=== PATIENT | female | born 1995 | race Two or more races ===

== ENCOUNTER 2019-08-13 11:12 | Outpatient (CLI) ==
[2019-08-13] MEDS ORDERED: None per pt (11:40)
[2019-08-13 12:04] LABS: BASOPHILS # (AUTO) 0.02 x10^3/uL (0-0.1); BASOPHILS % (AUTO) 0 % (0-1); EOSINOPHILS # (AUTO) 0.11 x10^3/uL (0-0.4); EOSINOPHILS % (AUTO) 2 % (1-7); LYMPHOCYTES # (AUTO) 2.19 x10^3/uL (1-3.4); LYMPHOCYTES % (AUTO) 46 % (22-44); MD NO; MEAN CORPUSCULAR HGB CONC 33.1 g/dL (32.4-35.8); MEAN CORPUSCULAR VOLUME 93.8 fL (80-100); MEAN PLATELET VOLUME 9.3 fL (7.4-10.4); MONOCYTES # (AUTO) 0.32 x10^3/uL (0.2-0.8); MONOCYTES % (AUTO) 7 % (2-9); NEUTROPHILS # (AUTO) 2.11 x10^3/uL (1.8-6.8); NEUTROPHILS % (AUTO) 44 % (42-75); PLATELET COUNT 202 x10^3/uL (130-400); RED BLOOD COUNT 4.34 x10^6/uL (3.82-5.3); RED CELL DISTRIBUTION WIDTH 13.2 % (9.6-15.2)
== END 2019-08-13 23:59 | disposition home or self-care (01) ==
LOC: STAR 11:12
PROVIDERS: ATTEND Obstetrics & Gynecology
DX: Z01.818 Encounter for other preprocedural examination (principal); N94.6 Dysmenorrhea, unspecified
CPT/HCPCS: 36415; 84703; 85025

== ENCOUNTER 2019-08-20 10:24 | Day surgery (SDC) | payer BC ==
[~2019-08-20] VITALS: Ht 157.5 cm; Wt 41.5 kg
[~2019-08-20 10:24] MED LIST: None per pt
[2019-08-20] MEDS ORDERED: LACTATED RINGERS 1,000 ML IV SCH (10:51)
[2019-08-20 10:54] VITALS: BP 115/83
[2019-08-20 10:56] LABS: HCG UR SG 1.026 (1.003-1.030)
[2019-08-20] MEDS ORDERED: LIDOCAINE-MPF 1%, 2ML INFIL ONE (11:00)
[2019-08-20] MEDS ORDERED: EPINEPHRINE 1 MG/ML, 1ML ONE (11:51)
[2019-08-20] MEDS ORDERED: BUPIVACAINE/PF 0.25% ONE (11:51)
[2019-08-20] MEDS ORDERED: MIDAZOLAM 1 MG/ML, 2ML ONE ×2 (12:23→13:47)
[2019-08-20] MEDS ORDERED: PROPOFOL 10 MG/ML, 20ML ONE (12:24)
[2019-08-20] MEDS ORDERED: FENTANYL PF 250 MCG/5ML ONE (12:24)
[2019-08-20] MEDS ORDERED: SUCCINYLCHOLINE 20 MG/ML, 10ML ONE (12:24)
[2019-08-20] MEDS ORDERED: ROCURONIUM 10MG/ML,5ML ONE (12:24)
[2019-08-20] MEDS ORDERED: DEXAMETHASONE 4 MG/ML, 1ML ONE ×2 (12:25)
[2019-08-20] MEDS ORDERED: ONDANSETRON 2MG/ML, 2ML ONE ×2 (13:09→13:10)
[2019-08-20] MEDS ORDERED: SUGAMMADEX 200 MG/2 ML IVPush ONE (13:09)
[2019-08-20] MEDS ORDERED: ACETAMINOPHEN 325 MG TABLET PO PRN (13:30)
[2019-08-20] MEDS ORDERED: hydrALAzine 20 MG/ML, 1ML IV PRN (13:30)
[2019-08-20] MEDS ORDERED: PROMETHAZINE 25 MG/ML, 1ML IV PRN (13:30)
[2019-08-20] MEDS ORDERED: LABETALOL 5MG/ML, 20ML IV PRN (13:30)
[2019-08-20] MEDS ORDERED: ONDANSETRON ODT 8 MG PO PRN (13:30)
[2019-08-20] MEDS ORDERED: OXYcodone 5 MG/5 ML ORAL.SOL UDC PO PRN (13:30)
[2019-08-20] MEDS ORDERED: MEPERIDINE/PF 25MG/ML,1ML IVPush PRN (13:30)
[2019-08-20] MEDS ORDERED: PROMETHAZINE 12.5 MG SUPP PR PRN (13:30)
[2019-08-20] MEDS ORDERED: MIDAZOLAM 1 MG/ML, 2ML IV PRN (13:30)
[2019-08-20] MEDS ORDERED: ONDANSETRON 2MG/ML, 2ML IV PRN (13:30)
[2019-08-20] MEDS ORDERED: DIAZEPAM 5 MG/ML, 2ML IVPush PRN (13:30)
[2019-08-20] MEDS ORDERED: HYDROmorphone 2 MG/ML, 1ML IVPush PRN (13:30)
[2019-08-20] MEDS ORDERED: ALBUTEROL SULFATE 2.5 MG/3 ML NPPB PRN (13:30)
[2019-08-20] MEDS ORDERED: HALOPERIDOL 5 MG/ML IV PRN (13:30)
[2019-08-20] MEDS ORDERED: EPHEDRINE 50 MG/ML, 1ML IVPush PRN (13:30)
[2019-08-20] MEDS ORDERED: ACETAMINOPHEN 650 MG/20.3 ML UDC ONE ×2 (13:46→13:58)
[2019-08-20] MEDS ORDERED: FENTANYL PF 100 MCG/2ML ONE (13:46)
[2019-08-20] MEDS ORDERED: OXYcodone 5 MG/5 ML ORAL.SOL UDC ONE (13:47)
[2019-08-20] MEDS: FENTANYL PF 100 MCG/2ML IV PRN ×2 (13:51→14:01)
== END 2019-08-20 15:30 | disposition home or self-care (01) ==
LOC: OUT 10:24
PROVIDERS: ATTEND Obstetrics & Gynecology
DX: N94.6 Dysmenorrhea, unspecified (principal); N92.0 Excessive and frequent menstruation with regular cycle; Z79.1 Long term (current) use of non-steroidal anti-inflammatories (NSAID)
CPT/HCPCS: 36415; 49320; 81025; 86850; 86900; J0171; J0330; J1100; J2250; J2405; J2704; J3010; J3490; J7120

== ENCOUNTER 2020-06-29 09:26 | Emergency (ER) | payer BC ==
[~2020-06-29] VITALS: Ht 157.5 cm; Wt 40.3 kg
[2020-06-29] MEDS ORDERED: LORazepam 1MG TABLET ONE (10:25)
[2020-06-29] MEDS ORDERED: LORazepam 1MG TABLET PO ONE (10:30)
[2020-06-29 10:41] LABS: BASOPHILS # (AUTO) 0.02 x10^3/uL (0-0.1); BASOPHILS % (AUTO) 0 % (0-1); EOSINOPHILS # (AUTO) 0.08 x10^3/uL (0-0.4); EOSINOPHILS % (AUTO) 1 % (1-7); LYMPHOCYTES % (AUTO) 33 % (22-44); MD NO; MEAN CORPUSCULAR HEMOGLOBIN 29.9 pg (27.0-34.8); MEAN CORPUSCULAR HGB CONC 32.7 g/dL (32.4-35.8); MEAN PLATELET VOLUME 9.5 fL (7.4-10.4); MONOCYTES # (AUTO) 0.44 x10^3/uL (0.2-0.8); MONOCYTES % (AUTO) 7 % (2-9); NEUTROPHILS # (AUTO) 3.52 x10^3/uL (1.8-6.8); NEUTROPHILS % (AUTO) 58 % (42-75); PLATELET COUNT 228 x10^3/uL (130-400); RED BLOOD COUNT 4.22 x10^6/uL (3.82-5.3); RED CELL DISTRIBUTION WIDTH 13.2 % (9.6-15.2)
[2020-06-29 10:45] LABS: ALBUMIN 3.7 g/dL (3.4-5.0); ANION GAP 5 mmol/L (5-15); CALCIUM 9.1 mg/dL (8.5-10.1); CHLORIDE 111 mmol/L (98-107); CREATININE 0.71 mg/dL (0.55-1.02)
[2020-06-29 10:49] LABS: TROPONIN I < 0.015 ng/mL (0.000-0.045)
[2020-06-29 10:58] VITALS: BP 103/70
--- NOTE | 2020-06-29 14:22 | NUR ---
NECKLACE FOUND IN PATIENTS ROOM BY HOUSEKEEPING AFTER DC, UNSURE IF BELONGS TO THIS PATIENT HOWEVER LABELED WITH THIS PTS NAME AND , ATTEMPTED TO CALL PT BUT NO ANSWER, LVM.
== END 2020-06-29 11:42 | disposition home or self-care (01) ==
LOC: ED 11:30
DX: F41.1 Generalized anxiety disorder (principal); R06.4 Hyperventilation; R07.89 Other chest pain
CPT/HCPCS: 36415; 71045; 80048; 82040; 83880; 84484; 84703; 85025; 93005; 99285